=== PATIENT | female | born 1935 | race Caucasian/White ===

== ENCOUNTER 2016-12-29 00:49 | Observation (INO) | payer MEDICARE, OTHER ==
[2016-12-28 22:58] LABS: BASOPHILS 0.2 %; BASOPHILS ABSOLUTE 0.02 10/3/uL (0.0-0.16); EOSINOPHILS 0.2 %; EOSINOPHILS ABSOLUTE 0.02 10/3/uL (0.0-0.53); ER CBC TAT 0 Hrs 11 Mins; HEMATOCRIT 33.3 % (36.0-48.0); HEMOGLOBIN 11.4 g/dL (12.0-16.0); IMMATURE GRANULOCYTES 0.3 %; IMMATURE GRANULOCYTES ABSOLUTE 0.03 10/3/uL (0.0-0.11); LYMPHOCYTES ABSOLUTE 0.59 10/3/uL (0.67-4.30); MEAN CORPUS HGB CONC 34.2 g/dL (32.0-36.0); MEAN CORPUSCULAR HEMOGLOB 30.4 pg (26.0-34.0); MEAN CORPUSCULAR VOLUME 88.8 fL (80-100); MEAN PLATELET VOLUME 9.2 fL (9.2-13.0); MONOCYTES 8.6 %; MONOCYTES ABSOLUTE 1.02 10/3/uL (0.21-1.20); NEUTROPHILS 85.7 %; NEUTROPHILS ABSOLUTE 10.22 10/3/uL (2.02-8.40); PLATELET COUNT 268 10/3/uL (150-400); RBC DISTRIBUTION WIDTH 14.8 % (12.0-16.0); RED CELL COUNT 3.75 10/6/uL (4.0-5.6); WHITE BLOOD CELLS 11.9 10/3/uL (4.5-10.5)
[2016-12-28 22:59] LABS: MANUAL DIFF NO %
[2016-12-28 23:07] LABS: BUN (BLOOD UREA NITROGEN) 10 MG/DL (6-23); CALCIUM, SERUM 8.5 MG/DL (8.5-10.4); CHEST PAIN PROFILE TAT 0 Hrs 20 Mins; CHLORIDE, SERUM 99 MMOL/L (96-112); CO2 (CARBON DIOXIDE) 24 MMOL/L (24-34); CREATININE 0.56 MG/DL (0.55-1.02); GFR AFRICAN AMERICAN 103 ML/MIN (>=60); GFR NON AFRICAN AMERICAN 89 ML/MIN (>=60); GLUCOSE, SERUM 106 MG/DL (60-99); POTASSIUM, SERUM 3.8 MMOL/L (3.5-5.3); SODIUM, SERUM 132 MMOL/L (135-148); TROPONIN I <0.02 NG/ML (<0.05)
--- NOTE | ~2016-12-29 | DS ---
Discharge Summary [place] [id number] [place]. [address] NAME: GLENN PEÑA : 39 STATUS : DIS [place] PAT#: [id number] AGE: 81 ADM/REG DATE : 12/29/16 MR#: [id number] REPORT SERV DATE: 12/30/16 DICTATED BY: JR. DIETZ WILLIAM JOHN DATE: 12/30/16 REPORT STATUS : Draft TRANSCRIBED BY: MODDiana DATE: 12/30/16 ADMISSION DATE: 12/29/2016 DISCHARGE DATE: 12/30/2016 DISCHARGE DIAGNOSES: Include: 1. Right middle lobe and lingular pneumonia. 2. Chest pain which was pleuritic. 3. Hyponatremia. 4. Hypertension. 5. Pulmonary nodules with recommendation for followup CT in three to six months. 6. Hypokalemia. OPERATIONS, PROCEDURES, AND TREATMENTS: 1. PA and lateral chest x-ray done 12/28/2016 which showed hyperinflation with infiltrate in the right middle lobe and/or lingula, otherwise, no acute pulmonary process. 2. CT angiogram of the chest done 12/29/2015, which showed no evidence for pulmonary embolism, thoracic aortic aneurysm or dissection. There is dense right middle lobe consolidation likely representing pneumonia. There was also some dense consolidation fibrosis and inferior lingula with lingular bronchiectasia. There is reticular nodular/tree in bud opacities in the lower lobes of both lungs as well as within the lingula with some additional patchy nodular infiltrates in basilar aspects of lower lobes of both lungs. The largest discrete nodular opacity was 6 x 5 mm in the left lower lobe. Although likely infectious/inflammatory CT followup recommended in three to six months to ensure resolution. 3. Blood cultures x2 were sterile at this time. DISCHARGE MEDICATIONS: Include: 1. Aspirin 81 mg orally daily. 2. Sinemet 25/100 three times a day. 3. Folate 800 mg orally daily. 4. Neurontin 600 mg three times a day. 5. Keppra 500 mg orally twice a day. 6. Lamictal 150 mg orally twice a day. 7. Synthroid 50 mcg orally daily. 8. Lisinopril 10 mg orally daily. 9. Multivitamin one tablet orally daily. 10.Protonix 40 mg orally daily. 11.Flovent one puff twice a day. 12.Fosamax 70 mg every seven days. 13.[place] 5/325 t.i.d. p.r.n. 14.Cefdinir 300 mg orally twice a day for five days. HOSPITAL COURSE: The patient is a 81-year-old white female with a history of Crohn disease, rheumatoid arthritis, Parkinson disease, hypothyroidism, and hypertension, presented to emergency room on 12/28/2015 with complaint of shortness of breath and pleuritic chest pain. The patient had been having pleuritic pain since Thursday. It had improved over the course of [address]charge [address] [facility] [place] [address] NAME: GLENN PEÑA : 39 STATUS : DIS [place] PAT#: [id number] AGE: 81 ADM/REG DATE : 12/29/16 MR#: [id number] REPORT SERV DATE: 12/30/16 DICTATED BY: JR. DIETZ WILLIAM JOHN DATE: 12/30/16 REPORT STATUS : Draft TRANSCRIBED BY: ABDIRIZAK DATE: 12/30/16 the week but had not completely gone away. The patient was also noted to be short of breath and denied cough at that time. Emergency room evaluation was significant for a chest x-ray, which showed infiltrate. EKG and cardiac enzymes were unremarkable. CT of the chest showed right middle lobe consolidation and reticular nodular in the left lower lobe. For complete details of the admission history, physical, and presenting data, please see Dr. Eugene's excellent dictated history and physical. The patient was admitted to the hospital for community-acquired pneumonia. She was placed on Rocephin, azithromycin. Blood cultures were obtained. Blood cultures are negative to date. Sputum cultures have not been collected as the patient was unable to expectorate. She dramatically improved, had no oxygen requirements. The pleuritic type chest pain had completely resolved. The patient was ambulating without difficulty. She will be discharged on cefdinir 300 mg orally twice a day for five more days. Regarding the hyponatremia, this completely resolved with IV fluids. Regarding the hypokalemia, this was replaced prior to discharge. Regarding pulmonary nodules, recommendation was for followup CT in three to six months. I have gone ahead and scheduled that with results to go to her primary care provider, Dr. Parra. For discharge exam and laboratory, please see daily progress note. DISCHARGE DIET: Will be regular. ACTIVITY: As tolerated. FOLLOWUP: Follow up with Dr. Parra in one to two weeks. Followup issues: Recommend followup CT of the chest with IV contrast in three to six months. I have ordered this for six months with results to go to Dr. Parra. This discharge took 33 minutes for patient encounter, coordination of care, and documentation. IRVING/ABDIRIZAK Escobar Dietz Jr, MD / [id number] CC: Discharge Summary [address] [address] NAME: GLENN PEÑA : 39 STATUS : DIS [place] PAT#: [id number] AGE: 81 ADM/REG DATE : 12/29/16 MR#: [id number] REPORT SERV DATE: 12/30/16 DICTATED BY: JR. DIETZ WILLIAM JOHN DATE: 12/30/16 REPORT STATUS : Draft TRANSCRIBED BY: ABDIRIZAK DATE: 12/30/16 MD Alee Mcdonnell MD
--- NOTE | ~2016-12-29 | HP ---
History And Physical [place] [id number] [place]. [address] NAME: GLENN RAMOS : 37 STATUS : REG ER PAT#: [id number] AGE: 81 ADM/REG DATE : 12/29/16 MR#: [id number] REPORT SERV DATE: 12/29/16 DICTATED BY: CHICO SPICER DATE: 12/29/16 REPORT STATUS : Draft TRANSCRIBED BY: MODL DATE: 12/29/16 DATE OF ADMISSION: 12/29/2016 POINT OF ENTRY: [facility] Emergency Department. CHIEF COMPLAINT: Chest pain and shortness of breath. HISTORY OF PRESENT ILLNESS: The patient is a 81-year-old female with a history of Crohn disease, rheumatoid arthritis, Parkinson disease, hypothyroidism as well as hypertension, who presents to the emergency department today with complaints of chest pain as well as shortness of breath. Majority of history is obtained from the patient's daughter, who is at bedside as the patient is tired and sleeping and providing limited history. Daughter states that the patient called her today stating that she was having chest pain. Upon further discussion, the patient admitted to daughter that she has been having chest pain since Thursday. She stated that it had improved over the course of the week, but had never completely gone away. Daughter states that she had been with the patient multiple times in the past week and her mother had not mention chest pain to her until today. On the phone, daughter also noted that the patient was very short of breath and was unable to complete full sentences secondary to shortness of breath. Daughter denies any cough or sputum production over the course of the week. However, the patient has reported some cough and sputum production today. She denies any fevers, but does report some chills also today as well. Initial evaluation in the emergency department notable for a chest x-ray that was unremarkable. EKG and cardiac enzymes also negative. Given reports of chest pain as well as shortness of breath with radiation, a CTA of the chest was performed, which was negative for PE, but did show a dense right middle lobe consolidation as well as some left lower lobe reticulonodular densities concerning also for infiltrate. She was subsequently admitted to the Hospitalist Service for further evaluation and management. Other than the above-mentioned symptoms, daughter also reports some worsening weakness and fatigue as well as some confusion earlier in the week, which she has attributed to the patient's history of chronic hyponatremia. COMPREHENSIVE REVIEW OF SYSTEMS: Otherwise negative unless listed in the history of present illness. PREVIOUS MEDICAL HISTORY: 1. Crohn disease status post colectomy. 2. Rheumatoid arthritis, no longer on therapy. 3. Osteoarthritis. 4. Hypertension. 5. Parkinson disease. 6. Hypothyroidism. 7. History of incarcerated parastomal hernia status post repair. History And Physical [address] [address] NAME: GLENN RAMOS : 39 STATUS : REG ER PAT#: [id number] AGE: 81 ADM/REG DATE : 12/29/16 MR#: [id number] REPORT SERV DATE: 12/29/16 DICTATED BY: CHICO SPICER DATE: 12/29/16 REPORT STATUS : Draft TRANSCRIBED BY: ABDIRIZAK DATE: 12/29/16 8. Chronic hyponatremia secondary to SIADH. 9. History of urinary retention. 10.Seizure disorder. 11.History of intracerebral hemorrhage status post fall. SURGICAL HISTORY: 1. Colectomy. 2. Cholecystectomy. 3. Abdominal hysterectomy. 4. Parastomal hernia repair. 5. Exploratory laparotomy and lysis of adhesions. 6. Bilateral shoulder replacement. 7. Bilateral total knee. 8. Bilateral total hip. ALLERGIES: CODEINE, PENICILLIN, AND MORPHINE. HOME MEDICATIONS: 1. Tylenol 650 mg q.6 hours p.r.n. 2. Fosamax 70 mg every week. 3. Aspirin 81 mg daily. 4. Flovent one puff inhalation b.i.d. 5. Folic acid 800 mcg daily. 6. Gabapentin 600 mg t.i.d. 7. Keppra 500 mg b.i.d. 8. Levothyroxine 50 mcg daily. 9. Lisinopril 10 mg daily. 10.Multivitamin one tablet daily. 11.Protonix 40 mg daily. 12.Med Plus [id number] pill three times daily. 13.Lamictal 150 mg b.i.d. 14.Sinemet 25-100 one tablet t.i.d. SOCIAL HISTORY: Denies any tobacco, alcohol, or illicits. Lives alone in independent correction community. FAMILY MEDICAL HISTORY: Mother with diabetes and breast cancer. Father with history of coronary artery disease. Siblings with lung cancer and diabetes. LABORATORY DATA AND IMAGIN. White count is 11.9, hemoglobin is 11.4, hematocrit is 32.3, platelet count is 268. INR 1.0. 2. Sodium is 132, potassium 3.8, chloride 99, carbon dioxide 24, BUN 10, creatinine 0.56, glucose is 106, calcium is 8.5, magnesium is 1.8, protein 6.8, albumin is 3.1, bilirubin is 0.5, ALT is 14, AST 22, alkaline phosphatase is 61. 3. Troponin less than 0.02. 4. EKG per my review shows normal sinus rhythm. No evidence of any acute ischemia or History And Physical [address] [address] NAME: GLENN RAMOS : 37 STATUS : REG ER PAT#: [id number] AGE: 81 ADM/REG DATE : 12/29/16 MR#: [id number] REPORT SERV DATE: 12/29/16 DICTATED BY: CHICO SPICER DATE: 12/29/16 REPORT STATUS : Draft TRANSCRIBED BY: ABDIRIZAK DATE: 12/29/16 infarction. Some LVH changes. 5. Chest x-ray shows no acute cardiopulmonary abnormality, but does show some hyperinflation. 6. CTA of the chest shows a dense right middle lobe consolidation as well as some reticulonodular densities in the left lower lobe. Negative for pulmonary embolism. PHYSICAL EXAMINATION: VITAL SIGNS: Temperature is 99.0 degrees Fahrenheit, pulse is 88, respirations 18, saturating 97% on room air, and blood pressure 155/75. GENERAL: The patient is sleeping, but easily awakens to verbal stimuli. She is a chronically ill appearing, thin and frail elderly female. Daughter is at bedside. HEENT: Atraumatic and normocephalic. Moist mucous membranes. Pupils are equal, round, reactive to light and accommodation. Extraocular movements are intact. No scleral icterus. NECK: No jugular venous distention. No carotid bruits. CARDIAC: Regular rate and rhythm. No murmurs, rubs, or gallops. Normal S1 and S2. LUNGS: Clear to auscultation bilaterally. No wheezes, rhonchi, or crackles. ABDOMEN: Ostomy is in place. No rebound, guarding, or rigidity. Nontender, nondistended. EXTREMITIES: Thin and wasted with multiple areas of ecchymoses. No cyanosis, clubbing, or edema. SKIN: Warm and dry, except for noted above. PSYCH: Affect is appropriate. NEURO: Alert and oriented x3. Cranial nerves II through XII grossly intact. Speech is normal. Gait not assessed. ASSESSMENT AND PLAN: Ms. Ramos is a 81-year-old female, who presents with complaint of chest pain since Thursday as well as some shortness of breath, chills, and some cough with sputum production and found to have evidence of multifocal pneumonia. PROBLEM LIST: 1. Multifocal pneumonia. 2. Chest pain. 3. Hyponatremia. 4. Leukocytosis. PLAN: 1. Multifocal pneumonia. We will treat with IV antibiotics of Rocephin and azithromycin. Blood cultures have been obtained. We will also check sputum culture and urinary antigens. Provide pulmonary toilet with DuoNeb, incentive spirometry, and flutter valve. 2. Chest pain. The patient reports chest pain since Thursday that according to description has been constant, but varying in intensity. EKG and cardiac enzymes are negative as is a CT of the chest for PE. We will continue to trend out cardiac enzymes. The patient does have risk factors, including hypertension and family history. Per daughter, it has been sometime that she has had any kind of cardiac evaluation. We will hold off on stress test at this time. Should the patient continue to complain of chest pain, she may need more involved cardiac workup. 3. Hyponatremia. Appears to be secondary to SIADH per recent workup in 2016. We will History And Physical [address] [address] NAME: GLENN RAMOS : 39 STATUS : REG ER PAT#: [id number] AGE: 81 ADM/REG DATE : 12/29/16 MR#: [id number] REPORT SERV DATE: 12/29/16 DICTATED BY: CHICO SPICER DATE: 12/29/16 REPORT STATUS : Draft TRANSCRIBED BY: ABDIRIZAK DATE: 12/29/16 place the patient on fluid restriction. Place her on some low-dose IV fluid hydration. 4. Hypertension. Continue the patient's home medications. 5. DVT prophylaxis. Lovenox subcutaneously. CODE STATUS: The patient wishes to be full code. JCB/ABDIRIZAK Chico Spicer MD / [id number] CC: Alee Parra MD
[2016-12-29 00:46] LABS: PARTIAL THROMBO TIME 33.7 SEC (22.5-37.2); PROTIME (NOT ORD) 13.1 SEC (12.0-14.5)
[~2016-12-29 00:49] MED LIST: AZULFENTAB PO; BACDS PO; CELEXA10 PO; DCN100 PO; FLEXERIL5 MG PO; FLOVENT DISK50 MCG IN; FLOVENT220 INH; FOLIC PO; FOSAMAX70 MG PO; HUMIRA PEN SC; KEPPRA500 PO; LAMICTAL150 MG PO; LEVOTHYROXIN50 MCG PO; LOP50 PO; MTX2.5 PO; NEUR300 PO; NEUR600 PO; NORCO1 TA1 PO; NORV5 PO; OS500 PO; OS500+D PO; PR25 PO; PREM625 PO; PRIN10 PO; PROAIR HFA INH; PROTONIX PO; RELA5 PO; RESTASIS; SAS500 PO; SIN25 PO; SYN.05 PO; TEARS PLUS OP; ULTRAM50 PO
[2016-12-29 00:52] LABS: ALKALINE PHOSPHATASE 61 U/L (45-117); DIRECT BILIRUBIN 0.1 MG/DL (0.0-0.4); INDIRECT BILIRUBIN(NOT ORDER) 0.4 MG/DL (0.1-0.9); SGOT(AST) 22 U/L (5-40); SGPT(ALT) 14 U/L (5-65); TOTAL BILIRUBIN 0.5 MG/DL (0-1.2); TOTAL PROTEIN 6.8 G/DL (6.0-8.5)
[2016-12-29 00:54] LABS: ALBUMIN 3.1 G/DL (3.5-5.0)
[2016-12-29] MEDS ORDERED: FLOVENT220 INH (03:30)
[2016-12-29] MEDS ORDERED: [UNRECOGNIZED DRUG - OTHER] PO (03:30)
[2016-12-29] MEDS ORDERED: PROTONIX PO (03:31)
[2016-12-29] MEDS ORDERED: PRIN10 PO (03:31)
[2016-12-29] MEDS ORDERED: LEVOTHYROXIN50 MCG PO (03:31)
[2016-12-29] MEDS ORDERED: FOSAMAX70 MG PO (03:31)
[2016-12-29] MEDS ORDERED: LAMICTAL150 MG PO (03:32)
[2016-12-29] MEDS ORDERED: FOLIC ACID400 MC1 PO (03:33)
[2016-12-29] MEDS ORDERED: NEUR600 PO (03:33)
[2016-12-29] MEDS ORDERED: KEPPRA500 PO (03:33)
[2016-12-29] MEDS ORDERED: SIN25 PO (03:34)
[2016-12-29] MEDS ORDERED: ASAB PO (03:35)
[2016-12-29] MEDS ORDERED: T PO (03:35)
[2016-12-29] MEDS ORDERED: MULTIVIT/MIN PO (03:35)
[2016-12-29] MEDS ORDERED: NORCO1 TA1 PO (07:14)
[2016-12-29] MEDS ORDERED: REFRESH OPH (07:15)
[2016-12-29 12:05] LABS: BASOPHILS 0.3 %; BASOPHILS ABSOLUTE 0.02 10/3/uL (0.0-0.16); EOSINOPHILS 0.5 %; EOSINOPHILS ABSOLUTE 0.04 10/3/uL (0.0-0.53); HEMATOCRIT 32.8 % (36.0-48.0); HEMOGLOBIN 10.9 g/dL (12.0-16.0); IMMATURE GRANULOCYTES 0.1 %; IMMATURE GRANULOCYTES ABSOLUTE 0.01 10/3/uL (0.0-0.11); LYMPHOCYTES ABSOLUTE 0.85 10/3/uL (0.67-4.30); MEAN CORPUS HGB CONC 33.2 g/dL (32.0-36.0); MEAN CORPUSCULAR HEMOGLOB 29.5 pg (26.0-34.0); MEAN CORPUSCULAR VOLUME 88.6 fL (80-100); MEAN PLATELET VOLUME 9.4 fL (9.2-13.0); MONOCYTES ABSOLUTE 0.54 10/3/uL (0.21-1.20); NEUTROPHILS 81.1 %; NEUTROPHILS ABSOLUTE 6.27 10/3/uL (2.02-8.40); PLATELET COUNT 268 10/3/uL (150-400); RBC DISTRIBUTION WIDTH 15.2 % (12.0-16.0); WHITE BLOOD CELLS 7.7 10/3/uL (4.5-10.5)
[2016-12-29 12:06] LABS: MANUAL DIFF NO %
[2016-12-29 12:24] LABS: CALCIUM, SERUM 8.2 MG/DL (8.5-10.4); CHLORIDE, SERUM 103 MMOL/L (96-112); CO2 (CARBON DIOXIDE) 23 MMOL/L (24-34); CPK 72 U/L (0-200); CREATININE 0.39 MG/DL (0.55-1.02); GFR AFRICAN AMERICAN 116 ML/MIN (>=60); GFR NON AFRICAN AMERICAN 100 ML/MIN (>=60); GLUCOSE, SERUM 113 MG/DL (60-99); POTASSIUM, SERUM 3.6 MMOL/L (3.5-5.3); SODIUM, SERUM 135 MMOL/L (135-148); TROPONIN I <0.02 NG/ML (<0.05)
[2016-12-29 12:27] LABS: BUN (BLOOD UREA NITROGEN) 6 MG/DL (6-23); CK-MB 3.1 NG/ML
[2016-12-29 19:21] LABS: CPK 77 U/L (0-200); TROPONIN I <0.02 NG/ML (<0.05)
[2016-12-29 19:23] LABS: CK-MB 2.6 NG/ML
[2016-12-29 22:13] LABS: ASCORBIC ACID (UR NOT ORDER) NEG (NEG); BILIRUBIN, URINE NEGATIVE (NEG); KETONE, URINE NEGATIVE (NEG); LEUKOCYTE ESTERASE(NOT OR NEG (NEG); WBC (NOT ORDERED) (RFLEX) 1 (0-5)
[2016-12-30 06:33] LABS: BASOPHILS 0.5 %; BASOPHILS ABSOLUTE 0.03 10/3/uL (0.0-0.16); EOSINOPHILS 1.7 %; EOSINOPHILS ABSOLUTE 0.11 10/3/uL (0.0-0.53); HEMATOCRIT 34.9 % (36.0-48.0); HEMOGLOBIN 11.8 g/dL (12.0-16.0); IMMATURE GRANULOCYTES 0.3 %; IMMATURE GRANULOCYTES ABSOLUTE 0.02 10/3/uL (0.0-0.11); LYMPHOCYTES 15.3 %; LYMPHOCYTES ABSOLUTE 0.98 10/3/uL (0.67-4.30); MANUAL DIFF NO %; MEAN CORPUS HGB CONC 33.8 g/dL (32.0-36.0); MEAN CORPUSCULAR HEMOGLOB 30.6 pg (26.0-34.0); MEAN CORPUSCULAR VOLUME 90.4 fL (80-100); MEAN PLATELET VOLUME 9.3 fL (9.2-13.0); MONOCYTES 17.3 %; MONOCYTES ABSOLUTE 1.11 10/3/uL (0.21-1.20); NEUTROPHILS 64.9 %; NEUTROPHILS ABSOLUTE 4.17 10/3/uL (2.02-8.40); PLATELET COUNT 292 10/3/uL (150-400); RBC DISTRIBUTION WIDTH 15.2 % (12.0-16.0); RED CELL COUNT 3.86 10/6/uL (4.0-5.6); WHITE BLOOD CELLS 6.4 10/3/uL (4.5-10.5)
[2016-12-30 06:47] LABS: BUN (BLOOD UREA NITROGEN) 6 MG/DL (6-23); CALCIUM, SERUM 8.8 MG/DL (8.5-10.4); CHLORIDE, SERUM 104 MMOL/L (96-112); CO2 (CARBON DIOXIDE) 26 MMOL/L (24-34); GFR AFRICAN AMERICAN 115 ML/MIN (>=60); GFR NON AFRICAN AMERICAN 99 ML/MIN (>=60); POTASSIUM, SERUM 3.3 MMOL/L (3.5-5.3); SODIUM, SERUM 137 MMOL/L (135-148)
[2016-12-30 06:48] LABS: GLUCOSE, SERUM 75 MG/DL (60-99)
[2016-12-30] MEDS ORDERED: OMNICEF300 PO (09:30)
== END 2016-12-30 12:00 | disposition home or self-care (01) ==
LOC: ER 00:49 → 2SO 09:52
PROVIDERS: Internal Medicine; Specialist
DX: J18.9 Pneumonia, unspecified organism (principal); I10 Essential (primary) hypertension; K50.90 Crohn's disease, unspecified, without complications; M06.9 Rheumatoid arthritis, unspecified; G20 Parkinson's disease; G40.909 Epilepsy, unspecified, not intractable, without status epilepticus; E03.9 Hypothyroidism, unspecified; Z90.49 Acquired absence of other specified parts of digestive tract; Z90.710 Acquired absence of both cervix and uterus; Z96.653 Presence of artificial knee joint, bilateral; Z96.643 Presence of artificial hip joint, bilateral; Z98.890 Other specified postprocedural states; Z88.5 Allergy status to narcotic agent; Z88.0 Allergy status to penicillin; Z82.49 Family history of ischemic heart disease and other diseases of the circulatory system; Z83.3 Family history of diabetes mellitus; Z80.3 Family history of malignant neoplasm of breast; Z80.1 Family history of malignant neoplasm of trachea, bronchus and lung; Z79.82 Long term (current) use of aspirin; Z79.51 Long term (current) use of inhaled steroids; Z79.899 Other long term (current) drug therapy
CPT/HCPCS: 71020; 71275; 80048 ×3; 80076; 81001; 82550; 82553; 83605; 83735; 84484 ×2; 85025 ×3; 85610; 85730; 87040; 87449 ×2; 93005 ×2; 96365; 96372; 96375 ×2; 96376; 99285; A9270 ×17; G0378; J0360; J0456 ×2; Q9967; 96374